=== PATIENT | male | born 1990 | race African-American/Black ===

== ENCOUNTER → 2016-09-16 | Outpatient (CLI) | payer OTHER ==
--- NOTE | 2016-09-16 10:38 | REP ---
LEFT ANKLE SERIES: Four views of the left ankle performed. There is no acute fracture, dislocation, or intrinsic bone disease. The ankle mortise is anatomic. There is mild soft tissue swelling. IMPRESSION: Soft tissue swelling without fracture or dislocation. Signed by Danilo Oliva MD 09/16/2016 05:19 P
--- NOTE | 2016-09-16 10:38 | REP ---
LEFT FOOT, FOUR VIEWS: There is no evidence of an acute fracture, dislocation or intrinsic bone disease. IMPRESSION: No fracture or dislocation. Signed by Danilo Oliva MD 09/16/2016 05:19 P
== END ==
LOC: M RAD 08:49
PROVIDERS: ATTEND Surgery
DX: M25.472 Effusion, left ankle (principal)